=== PATIENT | female | born 1980 | race Caucasian/White ===

== ENCOUNTER 2023-11-29 10:07 | Outpatient (CLI) | payer MEDICAID | END 2023-11-29 23:59 | disposition home or self-care (01) | LOC: CARD DIAG 10:07 | PROVIDERS: ATTEND Student in an Organized Health Care Education/Training Program | DX: I08.0 Rheumatic disorders of both mitral and aortic valves (principal); R00.2 Palpitations | CPT/HCPCS: 93306 ==

== ENCOUNTER 2024-01-14 10:22 | Outpatient (CLI) | payer MEDICAID | END 2024-01-14 23:59 | disposition home or self-care (01) | LOC: RT 10:22 | PROVIDERS: ATTEND Family Medicine | DX: R94.2 Abnormal results of pulmonary function studies (principal); M47.817 Spondylosis without myelopathy or radiculopathy, lumbosacral region; R05.9 Cough, unspecified; M54.50 Low back pain, unspecified | CPT/HCPCS: 71046; 72100; 94760 ==